=== PATIENT | male | born 1965 | race Caucasian/White ===

== ENCOUNTER 2024-07-29 10:47 | Day surgery (SDC) | payer OTHER ==
[~2024-07-29] VITALS: Ht 177.8 cm; Wt 94.5 kg
[~2024-07-29 10:47] MED LIST: ALPR.25 PO; ATORVASTATIN CA20 MG PO; B Complex #11 EACH PO; D3-20002000 UNIT PO; LISI5 PO; LORA.5 PO; Lactated Ringer's 1,000 ML IV ONE; Multiple Vitam1 EAC1 PO; Omeprazole20 M1 PO; PROP80ER PO; RANI150; VITAMIN D22000 UNIT PO
[2024-07-29] MEDS ORDERED: Dexamethasone Sod Phos 10 MG/ML 1ML VIAL ONE (11:05)
[2024-07-29] MEDS ORDERED: FentaNYL Citrate 50 MCG/ML 2 ML Injection ONE (11:05)
[2024-07-29] MEDS ORDERED: Bupivacaine 0.5% HCl 5 MG/ML 30MLVIAL ONE (11:05)
[2024-07-29] MEDS ORDERED: Midazolam HCl 1MG / ML 2ML Vial ONE (11:05)
[2024-07-29] MEDS ORDERED: propofoL 20 ML IV ONE (11:05)
[2024-07-29] MEDS ORDERED: Ondansetron HCl 2 MG / ML 2ML Vial ONE (11:06)
[2024-07-29] MEDS ORDERED: Prinivil10 MG PO (11:19)
[2024-07-29] MEDS ORDERED: Norco 7.5-3251 EACH (11:21)
[2024-07-29] MEDS ORDERED: STOOL SOFTENER (11:22)
[2024-07-29] MEDS ORDERED: CeFAZolin Sodium 2,000 MG VIAL ONE (11:25)
[2024-07-29] MEDS ORDERED: NS 0 ML IV ONE (11:25)
[2024-07-29] MEDS ORDERED: Lactated Ringer's 1,000 ML IV ONE (11:30)
--- NOTE | 2024-07-29 11:46 | NUR ---
07/29/24 1146 [place] High 1135: TIMEOUT FOR BLOCK PROCEDURE 1140: START TIME FOR BLOCK PROCEDURE 1145: END OF BLOCK PROCEDURE
[2024-07-29] MEDS ORDERED: Sugammadex Sodium 200 MG/2ML SDV (100 MG/ML) ONE (12:14)
--- NOTE | 2024-07-29 12:17 | NUR ---
07/29/24 1217 Bernadette Lynn BUPIVACAINE 0.5% 30 ML MIXED & VERIFIED W/ EPI 0.15ML (1MG/ML) TO MAKE BUPIVACAINE 0.5% 1:200,000 FOR INJECTION AT [facility].
[2024-07-29] MEDS ORDERED: HYDROcodone 5-APAP 325 TAB ONE (13:09)
[2024-07-29 13:14] VITALS: BP 144/98
== END 2024-07-29 13:22 | disposition home or self-care (01) ==
LOC: ORSCSDS 10:47
PROVIDERS: Podiatrist Foot & Ankle Surgery
PROC: 0QSK04Z Reposition Left Fibula with Internal Fixation Device, Open Approach (ICD-10-PCS; principal; 2024-07-29 12:30)
DX: S82.62XA Displaced fracture of lateral malleolus of left fibula, initial encounter for closed fracture (principal); I10 Essential (primary) hypertension; E78.00 Pure hypercholesterolemia, unspecified; K21.9 Gastro-esophageal reflux disease without esophagitis; Z79.899 Other long term (current) drug therapy; W01.0XXA Fall on same level from slipping, tripping and stumbling without subsequent striking against object, initial encounter
CPT/HCPCS: A9270; C1713; J0690; J1100; J2250; J2405; J2704; J3010; J7120